=== PATIENT | male | born 2005 | race Caucasian/White ===

== ENCOUNTER 2025-02-22 17:52 | Outpatient (CLI) | payer BC, SELFPAY ==
[2025-02-22 22:55] LABS: Chlamydia DNA Amplified* NOT DETECTED (No Detected); GC DNA Amplified* NOT DETECTED (No Detected)
== END 2025-02-22 17:53 | disposition home or self-care (01) ==
LOC: LKVREF 17:52
PROVIDERS: PCP Pediatrics
DX: R30.0 Dysuria (principal)
CPT/HCPCS: 87491; 87591